=== PATIENT | male | born 1950 | race Caucasian/White ===

== ENCOUNTER 2021-03-18 02:03 | Emergency (ER) | payer MEDICARE ==
[~2021-03-18] VITALS: Ht 177.8 cm; Wt 72.7 kg
[2021-03-18 02:20] VITALS: BP 168/94
--- NOTE | 2021-03-18 02:26 | PHYS DOC ---
Past Medical History Past Medical History: No Pertinent History Past Medical History Limited secondary to alcohol intoxication Past Surgical History: No Surgical History Past Surgical History Limited secondary to alcohol intoxication Smoking Status: Current Every Day Smoker Alcohol Use: Heavy Drug Use: None Social History Limited secondary to alcohol intoxication General Adult EDM: Chief Complaint: ALCOHOL INTOXICATION HPI: HPI: Patient is a 70 year old male with no past medical history is presenting today with alcohol intoxication complaining of left lower back back pain. Pain is located in the left lumbar paraspinal muscles. This back pain appears to be chronic in nature. Patient states that this back pain is been going on for several months to several years. Patient states that it came on all of a sudden and has been constant since then. Patient does state the pain is 10 out of 10. Patient said states that he has been seen at [facility] for this before. Patient states that he drinks every single day but has only had 1 "tall beer" so far today. Patient states that he does not take any medication with the pain. Patient does deny any trauma to the area, any fevers, chills, or cancer. History of present illness limited secondary to alcohol intoxication. Review of Systems: Review of Systems: Constitutional: Denies fever or chills GI: Reports abdominal pain : Denies dysuria or hematuria Musculoskeletal: Reports lumbar back pain Integument: Denies rash or skin lesions Neurologic: Denies headache; denies loss of bowel or bladder Review of systems limited secondary to alcohol intoxication Heart Score: C/O Chest Pain: N/A Current Medications: Current Medications Medications (Trade) Dose Ordered Sig/[facility] Start Time Stop Time Status Last Admin Dose Admin Ketorolac Tromethamine (Toradol 15mg Vial) 10 mg 1X ONCE 03/18/21 02:15 03/18/21 02:16 UNV Multivitamins 10 ml/Thiamine HCl 100 mg/Folic Acid 1 mg/Sodium Chloride 1,011.2 ml @ 1,000.088 mls/hr 1X ONCE 03/18/21 02:30 03/18/21 03:30 UNV Physical Exam: PE: Constitutional: Well developed, well nourished, no acute distress, appears intoxicated HENT: Normocephalic, atraumatic Eyes: PERRL, EOMI, conjunctiva normal, no discharge, horizontal nystagmus noted Neck: Normal range of motion, no tenderness, supple Lungs & Thorax: No respiratory distress, equal chest rise and fall Abdomen: Distended, suprapubic tenderness Skin: Warm, dry, no erythema, no rash Back: Tenderness on the left lumbar paraspinal muscles, no CVA tenderness Extremities: No tenderness, ROM intact, no edema Neurologic: Alert and oriented X 3, intoxicated, no focal deficits noted Psychologic: Affect normal, judgment abnormal Radiology/Procedures: Radiology/Procedures: PROCEDURE: CT ABDOMEN PELVIS WO CONTRAST & CT LUMBAR SPINE WO CONTRAST PQRS Compliance Statement: One or more of the following individualized dose reduction techniques were utilized for this examination: 1. Automated exposure control 2. Adjustment of the mA and/or kV according to patient size 3. Use of iterative reconstruction technique CT abdomen/pelvis without contrast 03/18/2021 2:[address] lumbar spine without contrast INDICATION: Left back pain. COMPARISON: None available TECHNIQUE: Multiple axial CT images of the abdomen and pelvis were obtained without intravenous contrast. Coronal and sagittal reformats are provided. 2-D reconstructions of the lumbar spine were obtained without intravenous contrast. FINDINGS: Mild pulmonary emphysematous changes are noted. Heart size is within normal limits. Three-vessel coronary artery vascular calcifications are present. Evaluation of the solid abdominal viscera is limited by lack of intravenous contrast. No suspicious hepatic masses are identified. Hypoattenuation the hepatic parenchyma suggestive of hepatic steatosis. Spleen, bilateral adrenal glands, and pancreas are normal in appearance. Gallbladder is absent. The abdominal aorta is normal in course and caliber. There are no pathologically enlarged lymph nodes in the abdomen and pelvis. There is no abdominal free fluid. There is no free intraperitoneal air. Dense calcified atheromatous plaque involving the abdominal aorta. Small and large bowel are normal in caliber. There is no evidence for bowel obstruction. There are no pericolonic inflammatory changes. A normal, nondilated appendix is visualized without adjacent inflammatory changes. Fat-containing supraumbilical hernia measures 1.4 cm with associated mild inflammation. 2 mm nonobstructing kyphosis identified in the interpolar right kidney. No hydronephrosis. No calculi within the ureters or urinary bladder. Prostate and seminal vesicles are normal. There is severe distention of the urinary bladder measuring 15.3 x 15.6 x 25 cm. No suspicious osseous abnormality. Vertebral body heights are maintained. No acute compression fracture. Moderate disc height loss L5-S1 and vacuum disc phenomena. L1-L2, there is normal disc configuration with mild facet arthropathy without significant neuroforaminal or spinal canal stenosis. At L2-L3, there is a circumferential disc bulge with moderate facet arthropathy resulting in mild bilateral neural foraminal stenosis and mild spinal canal stenosis. There is a posterior disc osteophyte complex at L3-L4 resulting in moderate spinal canal stenosis. At L4-L5, there is mild disc bulge asymmetric to the right with moderate facet arthropathy resulting in moderate right neural foraminal stenosis. At L5-S1, there is a posterior disc osteophyte complex with calcified left central disc protrusion and severe facet arthropathy resulting in severe left and moderate right neural foraminal stenosis. IMPRESSION: Severe distention of the urinary bladder which measures up to 15.3 x 15.6 x 25.0 cm. There is a fat-containing supraumbilical hernia with mild inflammation measuring 1.4 cm. Mild to moderate lumbar spondylosis as detailed above. No acute fracture. No definite cord compression is visualized. Electronically signed by: Hailey Miller MD (03/18/2021 3:02 AM) [facility] DICTATED and SIGNED BY: HAILEY MILLER MD Course & Med Decision Making: Course & Med Decision Making 70-year-old male with no past medical history is presenting today with alcohol intoxication and left-sided lower back pain that appears to be chronic in nature. No acute changes in his back pain tonight. In fact, he states that this pain has been constant for several months. Patient does appear clinically intoxicated. However, patient states he only has had "1 tall beer" today. Patient does deny any trauma to the area. Patient's pain is adequately controlled with Toradol. CT scan shows no acute abnormalities other than distended bladder. Oconnell catheter was placed and drained over 2500 mL of urine which provided significant relief for the patient. Labs revealed elevated liver enzymes and alcohol 286. Slightly low magnesium level which will be repleted with oral magnesium. Patient stable for discharge with outpatient follow-up with PCP/Urology. Discussed findings and plan with patient, who acknowledges understanding and agreement. Walter Disclaimer: Walter Disclaimer: This electronic medical record was generated, in whole or in part, using a voice recognition dictation system. Departure Departure Impression: Primary Impression: Alcohol intoxication Qualified Codes: F10.920 - Alcohol use, unspecified with intoxication, un complicated Additional Impressions: Urinary retention Hypomagnesemia Disposition: HOME / SELF CARE / HOMELESS Condition: STABLE Patient Instructions: Alcohol Intoxication, [id number], Alcohol and Drug Addiction, Finding Treatment, Oconnell Catheter Care, Adult, Hypomagnesemia, Urinary Retention, Acute, Male, [id number] Additional Instructions: Please call [facility] at to seek help for your mental health and/or drug/alcohol abuse. Follow-up with your doctor and/or urologist for further management and possible removal of Oconnell catheter. Scripts Tamsulosin Hcl (FLOMAX) 0.4 Mg Cap.er.24h 1 CAP PO DAILY, #20 CAP Prov: EDY HEBERT DO 03/18/21 EDY HEBERT DO Mar 18, 2021 02:26
[2021-03-18] MEDS ORDERED: MULTIVIT INFUSN,ADULT 4,VIT K 10 ML, THIAMINE INJ 100 MG, FOLIC ACID INJ 1 MG in IV NOR... IV ONE (03:00)
[2021-03-18] MEDS ORDERED: KETOROLAC 15 MG/ML VIAL. IVP ONE (03:00)
--- NOTE | 2021-03-18 03:04 | RAD ---
PQRS Compliance Statement: One or more of the following individualized dose reduction techniques were utilized for this examinat ion: 1. Automated exposure control 2. Adjustment of the mA and/or kV according to patient size 3. Use of iterative reconstruction technique CT abdomen/pelvis without contrast 03/18/2021 2:[address] lumbar spine without contrast INDICATION: Left back pain. COMPARISON: None available TECHNIQUE: Multiple axial CT images of the abdomen and pelvis were obtained without intravenous contr ast. Coronal and sagittal reformats are provided. 2-D reconstructions of the lumbar spine were obtain ed without intravenous contrast. FINDINGS: Mild pulmonary emphysematous changes are noted. Heart size is within normal limits. Three-vessel rosa nary artery vascular calcifications are present. Evaluation of the solid abdominal viscera is limited by lack of intravenous contrast. No suspicious hepatic masses are identified. Hypoattenuation the hepatic parenchyma suggestive of hep atic steatosis. Spleen, bilateral adrenal glands, and pancreas are normal in appearance. Gallbladder is absent. The abdominal aorta is normal in course and caliber. There are no pathologically enlarged lymph nodes in the abdomen and pelvis. There is no abdominal free fluid. There is no free intraperitoneal air. D ense calcified atheromatous plaque involving the abdominal aorta. Small and large bowel are normal in caliber. There is no evidence for bowel obstruction. There are no pericolonic inflammatory changes. A normal, nondilated appendix is visualized without adjacent infla mmatory changes. Fat-containing supraumbilical hernia measures 1.4 cm with associated mild inflammati on. 2 mm nonobstructing kyphosis identified in the interpolar right kidney. No hydronephrosis. No calculi within the ureters or urinary bladder. Prostate and seminal vesicles are normal. There is severe dis tention of the urinary bladder measuring 15.3 x 15.6 x 25 cm. No suspicious osseous abnormality. Vertebral body heights are maintained. No acute compression fractu re. Moderate disc height loss L5-S1 and vacuum disc phenomena. L1-L2, there is normal disc configurat ion with mild facet arthropathy without significant neuroforaminal or spinal canal stenosis. At L2-L3 , there is a circumferential disc bulge with moderate facet arthropathy resulting in mild bilateral n eural foraminal stenosis and mild spinal canal stenosis. There is a posterior disc osteophyte complex at L3-L4 resulting in moderate spinal canal stenosis. At L4-L5, there is mild disc bulge asymmetric to the right with moderate facet arthropathy resulting in moderate right neural foraminal stenosis. A t L5-S1, there is a posterior disc osteophyte complex with calcified left central disc protrusion and severe facet arthropathy resulting in severe left and moderate right neural foraminal stenosis. IMPRESSION: Severe distention of the urinary bladder which measures up to 15.3 x 15.6 x 25.0 cm. There is a fat-containing supraumbilical hernia with mild inflammation measuring 1.4 cm. Mild to moderate lumbar spondylosis as detailed above. No acute fracture. No definite cord compressio n is visualized. Electronically signed by: Gertrude Miller MD (03/18/2021 3:02 AM) [facility]
[2021-03-18 03:13] LABS: BILIRUBIN,URINE NEGATIVE (NEG); CLARITY,URINE CLEAR; COLOR,URINE YELLOW; NITRITE,URINE NEGATIVE (NEG); PROTEIN,URINE NEGATIVE (NEG-TRACE); UROBILINOGEN,URINE 0.2 mg/dL (0.2 mg/dL)
[2021-03-18 03:13] LABS: BASO % 0 % (0-3); EOS % 0 % (0-3); HEMATOCRIT 40.1 % (39.0-53.0); HEMOGLOBIN 13.8 g/dL (13.0-17.5); LYMPH # 1.8 x10^3/uL (1.0-4.8); LYMPH % 23 % (24-48); MEAN CORPUSCULAR HEMOGLOBIN 34 pg (25-35); MEAN CORPUSCULAR HGB CONC 35 g/dL (31-37); MEAN CORPUSCULAR VOLUME 98 fL (79-100); MONO # 0.5 x10^3/uL (0.0-1.1); MONO % 7 % (0-9); NEUT # 5.4 x10^3/uL (1.8-7.7); NEUT % 70 % (31-73); PLATELET COUNT 306 x10^3/uL (140-400); RED CELL DISTRIBUTION WIDTH 12.7 % (11.5-14.5); WHITE BLOOD COUNT 7.8 x10^3/uL (4.0-11.0)
[2021-03-18 03:23] LABS: CALCIUM 8.9 mg/dL (8.5-10.1); CREATININE 0.8 mg/dL (0.7-1.3); POTASSIUM 4.3 mmol/L (3.5-5.1)
[2021-03-18 03:23] LABS: BACTERIA,URINE 0 /HPF (0-FEW); RBC,URINE 0 /HPF (0-2); WBC,URINE 0 /HPF (0-4)
[2021-03-18 03:24] LABS: HYALINE CASTS, URINE FEW /HPF
[2021-03-18 03:31] LABS: ALBUMIN 3.3 g/dL (3.4-5.0); ALBUMIN/GLOBULIN RATIO 0.7 (1.0-1.7); MAGNESIUM 1.7 mg/dL (1.8-2.4); TOTAL BILIRUBIN 0.4 mg/dL (0.2-1.0); TOTAL PROTEIN 7.9 g/dL (6.4-8.2)
[2021-03-18] MEDS ORDERED: TAMS0.4C97 PO (03:56)
[2021-03-18] MEDS ORDERED: MAGNESIUM CHLORIDE ER 64 MG TABLET.ER PO ONE (04:00)
== END 2021-03-18 04:34 | disposition home or self-care (01) ==
LOC: ER 02:03
DX: F10.229 Alcohol dependence with intoxication, unspecified (principal); R33.9 Retention of urine, unspecified; E83.42 Hypomagnesemia; F17.200 Nicotine dependence, unspecified, uncomplicated; Y90.8 Blood alcohol level of 240 mg/100 ml or more
CPT/HCPCS: 36415; 51702; 74176; 80053; 81001; 83690; 83735; 85025; 96365; 96375; 99284; G0480; J1885; J3411; J3490; J7030; 99285-25

== ENCOUNTER 2021-03-18 07:53 | Emergency (ER) | payer MEDICARE ==
[~2021-03-18] VITALS: Ht 177.8 cm; Wt 75.0 kg
[~2021-03-18 07:53] MED LIST: TAMS0.4C97 PO
--- NOTE | 2021-03-18 08:14 | PHYS DOC ---
Past Medical History Past Medical History: Alcoholism Past Surgical History: No Surgical History Smoking Status: Current Every Day Smoker Alcohol Use: Heavy Drug Use: None General Adult EDM: Chief Complaint: urinary catheter problem HPI: HPI: 70 year old male who was last seen 4-5 hours prior in our ER for alcohol intoxication and urinary bladder distension who had a franks with a leg bag placed in the ED presents to the ED complaining of left flank pain, subjective feeling that he is not draining urine. He had pain relief with catheter placement and drainage of his urine. He had a CT scan performed last night that showed a grossly distended bladder. The patient denies nausea, vomiting, fever, chills, chest pain, shortness of breath, cough, recent trauma, or any other complaints. Review of Systems: Review of Systems: Constitutional: Negative except what was mentioned in HPI. Eyes: Negative except what was mentioned in HPI. HENT: Negative except what was mentioned in HPI. Respiratory: Negative except what was mentioned in HPI. Cardiovascular: Negative except what was mentioned in HPI. GI: Negative except what was mentioned in HPI. : Negative except what was mentioned in HPI. Musculoskeletal: Negative except what was mentioned in HPI. Integument: Negative except what was mentioned in HPI. Neurologic: Negative except what was mentioned in HPI. Heart Score: C/O Chest Pain: No Allergies: Allergies: Allergies Coded Allergies Type Severity Reaction Last Updated Verified Penicillins Allergy Intermediate 03/18/21 Yes Physical Exam: PE: Constitutional: No acute distress. Disheveled appearance. HENT: Atraumatic, bilateral external ears normal, nose normal. Eyes: PERRLA, EOMI, conjunctiva normal, no discharge. Neck: Normal range of motion, supple, no stridor. Cardiovascular: Heart rate regular rhythm. 2+ radial pulses Lungs & Thorax: No respiratory distress, symmetrical expansion. Abdomen: Soft, no tenderness Genitourinary: Penis and external genitalia are within normal limits, there is a Franks catheter at the meatus that appears to be draining urine appropriately, there is urine present in the tubing and leg bag that seems appropriate for the amount of time that the Franks catheter has been placed Skin: Warm, dry. Extremities: No tenderness, no cyanosis, ROM intact, no edema. Neurologic: Alert and oriented X 3, normal motor function, normal sensory function, no focal deficits noted. Non ataxic gait. GCS 15. Psychologic: Affect normal, judgment normal, mood normal. Current Patient Data: Labs: Laboratory Tests Test 03/18/21 09:00 Sodium Level 139 mmol/L (136-145) Potassium Level 4.3 mmol/L (3.5-5.1) Chloride Level 102 mmol/L (98-107) Carbon Dioxide Level 23 mmol/L (21-32) Anion Gap 14 (6-14) Blood Urea Nitrogen 18 mg/dL (8-26) Creatinine 0.8 mg/dL (0.7-1.3) Estimated GFR (Cockcroft-Gault) 95.0 Glucose Level 78 mg/dL (70-99) Calcium Level 8.5 mg/dL (8.5-10.1) Vital Signs: Vital Signs Date Time Temp Pulse Resp B/P (MAP) Pulse Ox O2 Delivery O2 Flow Rate FiO2 03/18/21 08:30 20 95 Room Air 03/18/21 07:56 98.7 100 20 140/82 (101) 96 Room Air 98.7 EKG: EKG: [] Radiology/Procedures: Radiology/Procedures: PROCEDURE: CHEST AP ONLY INDICATION: Reason: covid pneumonia / Spl. Instructions: / History: COMPARISON: None. FINDINGS: Single view of chest obtained. Hypoexpanded examination of the lungs with moderate opacities seen throughout the bilateral lungs. Enlarged cardiomediastinal silhouette but likely exaggerated by portable technique. IMPRESSION: * Moderate pulmonic opacities throughout the bilateral lungs which could be secondary to bilateral pneumonia given the patient's history. Edema could also have this imaging appearance. Electronically signed by: Tima Huitron MD (03/18/2021 8:30 AM) Course & Med Decision Making: Course & Med Decision Making CT scan and documentation from ER physician for last encounter was reviewed by me. Grossly distended bladder was seen on CT scan of the abdomen. Patient reportedly felt positive relief after the catheter was placed. The catheter was flushed at the bedside and a renal ultrasound was ordered to further assess the patient's flank pain and subjective symptoms of urinary obstruction. after flush, catheter working well, draining urine, us shows decompressed bladder. No sign or symptom of alcohol withdrawal, patient appears stable for discharge. Understands previous plan to follow up for his catheter. Departure Departure Impression: Primary Impression: Franks catheter in place Additional Impression: Franks catheter problem Disposition: HOME / SELF CARE / HOMELESS Condition: STABLE Referrals: UNKNOWN PCP NAME (PCP) Patient Instructions: Franks Catheter Care, Adult Additional Instructions: You were seen in the emergency department and your health condition was deemed not to require admission to the hospital. It is important to realize that we can only evaluate you during the time that you are in her department. Occasionally health conditions can worsen upon leaving the emergency department. If this were to happen, please return to and allow us the opportunity to reevaluate you. It is a pleasure to take care of your health needs. Return to the ER if your symptoms worsen, do not improve, or if you develop additional symptoms that are concerning to you DANIEL TRAVIS DO Mar 18, 2021 08:14
[2021-03-18] MEDS ORDERED: HYDROcodone/APAP 5/325MG 1 TAB TABLET PO ONE (08:15)
[2021-03-18 09:23] LABS: CALCIUM 8.5 mg/dL (8.5-10.1); CREATININE 0.8 mg/dL (0.7-1.3); POTASSIUM 4.3 mmol/L (3.5-5.1)
--- NOTE | 2021-03-18 10:00 | RAD ---
INDICATION: Reason: left flank pain, s/p urinary catheter placement/ Spl. Instructions: / History: COMPARISON: CT from earlier same day TECHNIQUE: Grayscale and color ultrasound images obtained of the bilateral kidneys and bladder. FINDINGS: Right Kidney: 109 mm. No hydronephrosis. Left Kidney: 108 mm. No hydronephrosis. Partially visualized liver is echogenic. Nonspecific but can be seen with fatty infiltration. Echogenic foci at the bilateral kidney which may correspond to the calcification seen on recent CT wh ich could be from nonobstructive stone or vascular in nature. Bladder: Urinary bladder now has a catheter within and appears largely decompressed with a small amou nt of persistent urine within the bladder but this is largely decreased from prior when the bladder w as severely dilated. IMPRESSION: * No hydronephrosis bilaterally. * Placement of catheter with interval drainage of the urinary bladder. Electronically signed by: Tima Huitron MD (03/18/2021 9:57 AM) [id number]
[2021-03-18 11:01] VITALS: BP 151/71
== END 2021-03-18 11:10 | disposition home or self-care (01) ==
LOC: ER 07:53
DX: T83.098A Other mechanical complication of other urinary catheter, initial encounter (principal); F17.200 Nicotine dependence, unspecified, uncomplicated; F10.20 Alcohol dependence, uncomplicated; Z88.0 Allergy status to penicillin; Y90.9 Presence of alcohol in blood, level not specified
CPT/HCPCS: 36415; 51702; 76770; 80048; 99284; 99285-25

== ENCOUNTER 2021-03-18 19:31 | Emergency (ER) | payer MEDICARE ==
[~2021-03-18] VITALS: Ht 182.9 cm; Wt 75.0 kg
[2021-03-18 19:50] VITALS: BP 168/90
--- NOTE | 2021-03-18 20:11 | PHYS DOC ---
Past Medical History Past Medical History: Alcoholism (EDY LOMBARDO APRN) Past Surgical History: No Surgical History (EDY LOMBARDO APRN) Smoking Status: Current Every Day Smoker Alcohol Use: Heavy Drug Use: None (DEY LOMBARDO APRN) General Adult EDM: Chief Complaint: URINE CATHETER PROBLEM HPI: HPI: Patient is a 70-year-old male presents emergency department concerning his evy ter came out while he was getting into his chair at home. Patient reports he had a catheter placement this morning here in the emergency department related to urinary retention, the patient is unsure but he believes the tube got caught on something while he was getting into his chair at home just prior to arrival when he felt the catheter pull and come out. Patient denies seeing blood in his urine or from his penis. Patient reports he has not urinated since his catheter came out at home just prior to arrival. Patient denies other aches or pains, denies other physical complaints or physical concerns. Patient reports his primary reason for coming to the emergency department today is to have his urinary Oconnell catheter replaced. (EDY LOMBARDO APRN) Review of Systems: Review of Systems: 14 body systems of review of systems have been reviewed. See HPI for pertinent positives and negative responses, otherwise all other systems are negative, nonpertinent or noncontributory. Constitutional: Negative except as outlined in HPI above. Skin: Negative except as outlined in HPI above. Eyes: Negative except as outlined in HPI above. HENT: Negative except as outlined in HPI above. Respiratory: Negative except as outlined in HPI above. Cardiovascular: Negative except as outlined in HPI above. GI: Negative except as outlined in HPI above. : Negative except as outlined in HPI above. Musculoskeletal: Negative except as outlined in HPI above. Integument: Negative except as outlined in HPI above. Neurologic: Negative except as outlined in HPI above. Endocrine: Negative except as outlined in HPI above. Lymphatic: Negative except as outlined in HPI above. Psychiatric: Negative except as outlined in HPI above. (EDY LOMBARDO APRN) Heart Score: C/O Chest Pain: No Risk Factors: Risk Factors: DM, Current or recent (<one month) smoker, HTN, HLP, family history of CAD, obesity. Risk Scores: Score 0 - 3: 2.5% MACE over next 6 weeks - Discharge Home Score 4 - 6: 20.3% MACE over next 6 weeks - Admit for Clinical Observation Score 7 - 10: 72.7% MACE over next 6 weeks - Early Invasive Strategies (EDY LOMBARDO APRN) Allergies: Allergies: Allergies Coded Allergies Type Severity Reaction Last Updated Verified Penicillins Allergy Intermediate 03/18/21 Yes (EDY LOMBARDO APRN) Physical Exam: PE: Constitutional: Well developed, well nourished, no acute distress, non-toxic appearance. 70-year-old male in no apparent distress. HENT: Normocephalic, atraumatic. Eyes: Conjunctiva normal, no discharge. Neck: Normal range of motion, no stridor. Cardiovascular: No cyanosis appreciated, distal cap refill less than 2 seconds. Lungs & Thorax: Patient is in no respiratory distress, no audible adventitious lung sounds appreciated. Abdomen: Nontender, no abnormalities noted. Skin: Warm, dry, no erythema, no rash. Back: No tenderness, no deformities. Extremities: No tenderness, no cyanosis, no clubbing, ROM intact, no edema. Neurologic: Alert and oriented X 3, normal motor function, normal sensory function, no focal deficits noted. Psychologic: Affect normal, judgement normal, mood normal. : No blood from the urethra. Normal genital exam performed with ED nurse at bedside for contracts intern. (EDY LOMBARDO APRN) EKG: EKG: [] (EDY LOMBARDO APRN) Radiology/Procedures: Radiology/Procedures: [] (EDY LOMBARDO APRN) Course & Med Decision Making: Course & Med Decision Making Pertinent Labs and Imaging studies reviewed. (See chart for details) 70-year-old male, vital signs reviewed, presents to the emergency department requesting Oconnell replacement after it was pulled out while he was at home today. Physical examination is consistent with patient's explanation of events. The balloon on the indwelling Oconnell catheter was torn. Scant amount of blood at tip of Oconnell catheter. Discussed with patient will replace indwelling Oconnell catheter, strict follow-up with primary care physician soon, patient reports he made an appointment to be seen on March 21. Discussed with the patient all findings and diagnostic testing as well as the need to follow-up with their primary care provider for further evaluation and treatment or return to the ED if any new or worsening symptoms. Strict return precautions were also discussed at length, the patient voiced understanding and agreement with the discharge planning. The patient was nontoxic in appearance, in no apparent distress, and hemodynamically stable at the time of disposition. (EDY LOMBARDO APRN) Dragon Disclaimer: Dragon Disclaimer: This electronic medical record was generated, in whole or in part, using a voice recognition dictation system. (EDY LOMBARDO APRN) Departure Departure Impression: Primary Impression: Encounter for Oconnell catheter replacement Disposition: HOME / SELF CARE / HOMELESS Condition: GOOD Referrals: UNKNOWN PCP NAME (PCP) Additional Instructions: You were seen today in the emergency department for a replacement of your Oconnell catheter. Your Oconnell catheter was replaced today in the emergency department, please keep your primary care physician appointment on March 21, 2021. Return to the emergency department for worsening symptoms or other concerns. Thank you for visiting our Emergency Department. It was a pleasure taking care of you today in the emergency department and we appreciate you trusting us with your care. If any additional problems come up don't hesitate to return to visit us. Please follow up with your primary care provider so they can plan additional care if needed and know about the problem that you had. If symptoms worsen come back to the Emergency Department. Any concerning symptoms that start such as chest pain, shortness of air, weakness or numbness on one side of the body, running high fevers or any other concerning symptoms return to the ER. Attending Signature Attending Signature I have reviewed the PA/SHEET HEATER's note and plan of care. I was available for consultation as needed during the patient's visit in the emergency department. I agree with the clinical impression, plan, and disposition. (EDY HEBERT DO) EDY LOMBARDO APRN Mar 18, 2021 20:11 EDY HEBERT DO Mar 19, 2021 00:33
== END 2021-03-18 20:30 | disposition home or self-care (01) ==
LOC: ER 19:31
DX: Z46.6 Encounter for fitting and adjustment of urinary device (principal); R33.9 Retention of urine, unspecified; F17.200 Nicotine dependence, unspecified, uncomplicated; F10.20 Alcohol dependence, uncomplicated; Z88.0 Allergy status to penicillin; Y90.9 Presence of alcohol in blood, level not specified
CPT/HCPCS: 51702; 99284

== ENCOUNTER 2021-04-11 06:14 | Emergency (ER) | payer MEDICARE ==
[~2021-04-11] VITALS: Ht 182.9 cm; Wt 75.0 kg
[2021-04-11] MEDS ORDERED: TAMS0.4C97 PO (06:57)
--- NOTE | 2021-04-11 06:58 | PHYS DOC ---
Past Medical History Past Medical History: Alcoholism, Other Additional Past Medical Histor: URINARY RETENTION Past Surgical History: Cholecystectomy Smoking Status: Current Every Day Smoker Alcohol Use: Heavy Drug Use: None General Adult EDM: Chief Complaint: URINARY RETENTION HPI: HPI: Patient is a 70 year old female with a history of urinary retention who presents with urinary retention. States that he has not been able to empty his bladder since yesterday. Has increasing lower abdominal discomfort. Denied any preceding dysuria, urgency, frequency, or hematuria prior to his retention issue this time around. States that he is "trying" to see a urologist, but has not done so yet. States he has seen his primary care doctor who has prescribed him a medication for a UTI, which she has not picked up yet. He does not know the name of the medication. He did not diamond picker his tamsulosin. Denies any fevers or chills. Review of Systems: Review of Systems: See HPI for pertinent ROS negatives and positives Heart Score: C/O Chest Pain: No Allergies: Allergies: Allergies Coded Allergies Type Severity Reaction Last Updated Verified Penicillins Allergy Intermediate 03/18/21 Yes Physical Exam: PE: Constitutional: Well developed, well nourished, no acute distress, non-toxic appearance. [] HENT: Normocephalic, atraumatic, bilateral external ears normal, oropharynx moist, no oral exudates, nose normal. [] Eyes: PERRLA, EOMI, conjunctiva normal, no discharge. [] Neck: Normal range of motion, no tenderness, supple, no stridor. [] Cardiovascular:Heart rate regular rhythm, no murmur [] Lungs & Thorax: Bilateral breath sounds clear to auscultation [] Abdomen distended lower abdomen tender with palpable bladder. Skin: Warm, dry, no erythema, no rash. [] Back: No tenderness, no CVA tenderness. [] Extremities: No tenderness, no cyanosis, no clubbing, ROM intact, no edema. [] Neurologic: Alert and oriented X 3, normal motor function, normal sensory function, no focal deficits noted. [] Psychologic: Affect normal, judgement normal, mood normal. [] Current Patient Data: Vital Signs: Vital Signs Date Time Temp Pulse Resp B/P (MAP) Pulse Ox O2 Delivery O2 Flow Rate FiO2 04/11/21 06:30 98.7 77 20 128/79 (95) 100 Room Air 98.7 EKG: EKG: [] Radiology/Procedures: Radiology/Procedures: POC ultrasound showed a largely distended bladder without hydronephrosis bilaterally [] Course & Med Decision Making: Course & Med Decision Making Pertinent Labs and Imaging studies reviewed. (See chart for details) Patient is 70-year-old male with history of urinary retention who presents with recurrent urinary retention. Denies recent hematuria, blood clots, or infectious symptoms, although states that he is supposed to be treated for UTI by his PCP. He has not picked up an antibiotic yet. Bedside ultrasound confirms a largely distended bladder without evidence of hydronephrosis. We will order a replacement Oconnell catheter, Rx tamsulosin, and give information for urology follow-up. 0656 UA does show evidence of infection with bacteria, increased wbc, and small leukocyte esterase. I have ordered cefdinir for outpatient treatment as I cannot confirm that he has an Rx for antibiotics. I advised him not to take both antibiotics. [id number] Walter Disclaimer: Walter Disclaimer: This electronic medical record was generated, in whole or in part, using a voice recognition dictation system. Departure Departure Impression: Primary Impression: Urinary retention Disposition: HOME / SELF CARE / HOMELESS Condition: STABLE Referrals: UNKNOWN PCP NAME (PCP) Additional Instructions: Please either take the antibiotic I prescribed today, Cefdinir, or the antibiotic your primary care doctor prescribed. DO NOT TAKE BOTH. Please continue to take your tamsulosin. Please call one of the follow practice locations for urology follow up. [facility] / [place] [address] [place], [place] [id number] [place] [address] [place] [address] [facility], [address] [place] [address] Scripts Cefdinir (CEFDINIR) 300 Mg Capsule 1 CAP PO BID for 10 Days, #20 CAP 0 Refills Prov: MARINA ACEVEDO MD 04/11/21 Tamsulosin Hcl (FLOMAX) 0.4 Mg Cap.er.24h 1 CAP PO DAILY, #30 CAP 0 Refills Prov: MARINA ACEVEDO MD 04/11/21 MARINA ACEVEDO MD Apr 11, 2021 06:58
[2021-04-11 08:01] LABS: BILIRUBIN,URINE NEGATIVE (NEG); CLARITY,URINE CLEAR; COLOR,URINE YELLOW; NITRITE,URINE NEGATIVE (NEG); PROTEIN,URINE NEGATIVE (NEG-TRACE); UROBILINOGEN,URINE 0.2 mg/dL (0.2 mg/dL)
[2021-04-11 08:09] LABS: BACTERIA,URINE MODERATE /HPF (0-FEW); RBC,URINE 0 /HPF (0-2)
[2021-04-11] MEDS ORDERED: CEFD300C PO (08:16)
[2021-04-11 08:56] VITALS: BP 113/63
== END 2021-04-11 08:41 | disposition home or self-care (01) ==
LOC: ER 06:14
DX: R33.9 Retention of urine, unspecified (principal); F17.200 Nicotine dependence, unspecified, uncomplicated; Z90.49 Acquired absence of other specified parts of digestive tract; Z88.0 Allergy status to penicillin
CPT/HCPCS: 51702; 81001; 87077; 87086; 87186; 99285-25